=== PATIENT | female | born 1965 | race American Indian/Alaskan Native ===

== ENCOUNTER 2019-11-29 23:31 | Inpatient (IN) | payer OTHER ==
--- NOTE | 2019-11-30 | Emergency Department Report ---
ED Altered Mental Status HPI - General Chief Complaint: Psych Stated Complaint: AMS/MH Time Seen by Provider: 11/29/19 23:58 Source: patient, EMS Mode of arrival: Ambulatory Limitations: No Limitations - History of Present Illness Initial Comments: Patient is a 54-year-old female that presents emergency room with complaints of altered mental status and not acting right. Patient is mute and is unable to give any history. Report received from EMS and EMS states that the family called EMS because the patient is been acting strange and not been taking her medications or eating for a week. Patient has a past medical history of diabetes, hypertension, bipolar schizophrenia hyperlipidemia. No family at bedside. MD Complaint: altered mental status -: Sudden, week(s) - Related Data Home Medications Medication Instructions Recorded Confirmed Last Taken Unobtainable 11/29/19 11/29/19 Unknown Allergies Allergy/AdvReac Type Severity Reaction Status Date / Time No Known Allergies Allergy Unverified 11/29/19 23:51 ED Review of Systems ROS: Stated complaint: AMS/MH Other details as noted in HPI Comment: Unobtainable due to pts medical conditions ED Past Medical Hx - Past Medical History Previous Medical History?: Yes Hx Hypertension: Yes Hx Diabetes: Yes Hx Psychiatric Treatment: Yes (Bipolar schizo) Additional medical history: high cholesterol - Surgical History Past Surgical History?: No - Family History Family history: no significant - Social History Smoking Status: Unknown if ever smoked Substance Use Type: None - Medications Home Medications: Home Medications Medication Instructions Recorded Confirmed Last Taken Type Unobtainable 11/29/19 11/29/19 Unknown History ED Physical Exam - General Limitations: No Limitations General appearance: alert, in no apparent distress - Head Head exam: Present: atraumatic, normocephalic - Eye Eye exam: Present: normal appearance, PERRL Pupils: Present: normal accommodation - ENT ENT exam: Present: mucous membranes moist - Neck Neck exam: Present: normal inspection - Respiratory Respiratory exam: Present: normal lung sounds bilaterally. Absent: respiratory distress, wheezes, rales - Cardiovascular Cardiovascular Exam: Present: regular rate, normal rhythm. Absent: systolic murmur, diastolic murmur, rubs, gallop - GI/Abdominal GI/Abdominal exam: Present: soft, normal bowel sounds. Absent: distended, tenderness, guarding - Extremities Exam Extremities exam: Present: normal inspection - Back Exam Back exam: Present: normal inspection - Neurological Exam Neurological exam: Present: alert, altered - Skin Skin exam: Present: warm, dry, intact, normal color. Absent: rash - Assessment Assessment Interval: Baseline - Level of Consciousness 1a. Level of Consciousness: alert/keenly responsive - LOC Questions 1b. LOC Questions: answers no questions correctly - LOC Command 1c. LOC Commands: performs tasks correctly - Best Gaze 2. Best Gaze: normal - Visual 3. Visual: no visual loss - Facial Palsy 4. Facial Palsy: normal symmetrical movement - Motor Arm 5a. Motor Arm Left: no drift 5b. Motor Arm Right: no drift - Motor Leg 6a. Motor Leg Left: no drift 6b. Motor Leg Right: no drift - Limb Ataxia 7. Limb Ataxia: absent - Sensory 8. Sensory: normal - Best Language 9. Best Language: no aphasia - Dysarthria 10. Dysarthria: normal - Extinction and Inattention 11. Extinction/Inattention: no abnormality - Scoring Total Score: 2 Stroke Severity: Minor Stroke ED Course Vital Signs 11/29/19 11/29/19 23:47 23:49 Temperature 98.7 F Pulse Rate 109 H Respiratory 20 20 Rate Blood Pressure 134/88 [Left] O2 Sat by Pulse 100 96 Oximetry - Reevaluation(s) Reevaluation #1: Patient is starting to answer some questions. 11/30/19 04:20 Reevaluation #2: I discussed all results with patient. I discussed plan of care with patient. Patient agrees with plan of care and admission. Patient to be admitted to the hospitalist service. 11/30/19 04:41 - Consultations Consultation #1: Hospitalist consulted for admission. Hospitalist to admit patient. 11/30/19 04:41 - Lab Data Result diagrams: 11/30/19 00:02 11/30/19 00:02 Lab Results 11/30/19 11/30/19 11/30/19 Range/Units 00:02 00:02 00:02 WBC (4.5-11.0) K/mm3 RBC (3.65-5.03) M/mm3 Hgb (10.1-14.3) gm/dl Hct (30.3-42.9) % MCV (79-97) fl MCH (28-32) pg MCHC (30-34) % RDW (13.2-15.2) % Plt Count (140-440) K/mm3 Lymph % (Auto) (13.4-35.0) % [place] % (Auto) (0.0-7.3) % Eos % (Auto) (0.0-4.3) % Baso % (Auto) (0.0-1.8) % Lymph # (1.2-5.4) K/mm3 [place] # (0.0-0.8) K/mm3 Eos # (0.0-0.4) K/mm3 Baso # (0.0-0.1) K/mm3 Seg Neutrophils % (40.0-70.0) % Seg Neutrophils # (1.8-7.7) K/mm3 Sodium 149 H (137-145) mmol/L Potassium 3.5 L (3.6-5.0) mmol/L Chloride 106.7 (98-107) mmol/L Carbon Dioxide 26 (22-30) mmol/L Anion Gap 20 mmol/L BUN 31 H (7-17) mg/dL Creatinine 1.2 (0.7-1.2) mg/dL Estimated GFR 47 ml/min BUN/Creatinine Ratio 26 % Glucose 124 H (65-100) mg/dL Calcium 10.8 H (8.4-10.2) mg/dL Urine Color (Yellow) Urine Turbidity (Clear) Urine pH (5.0-7.0) Ur Specific Rudyard (1.003-1.030) Urine Protein (Negative) mg/dL Urine Glucose (UA) (Negative) mg/dL Urine Ketones (Negative) mg/dL Urine Blood (Negative) Urine Nitrite (Negative) Urine Bilirubin (Negative) Urine Urobilinogen (<2.0) mg/dL Ur Leukocyte Esterase (Negative) Urine WBC (Auto) (0.0-6.0) /HPF Urine RBC (Auto) (0.0-6.0) /HPF U Epithel Cells (Auto) (0-13.0) /HPF Urine Bacteria (Auto) (Negative) /HPF Urine Mucus /HPF Salicylates < 0.3 L (2.8-20.0) mg/dL Urine Opiates Screen Urine Methadone Screen Acetaminophen < 5.0 L (10.0-30.0) ug/mL Ur Barbiturates Screen Ur Phencyclidine Scrn Ur Amphetamines Screen U Benzodiazepines Scrn Urine Cocaine Screen U Marijuana (THC) Screen Drugs of Abuse Note Plasma/Serum Alcohol (0-0.07) % 11/30/19 11/30/19 11/30/19 Range/Units 00:02 00:09 03:38 WBC 13.2 H (4.5-11.0) K/mm3 RBC 5.17 H (3.65-5.03) M/mm3 Hgb 13.7 (10.1-14.3) gm/dl Hct 42.3 (30.3-42.9) % MCV 82 (79-97) fl MCH 26 L (28-32) pg MCHC 32 (30-34) % RDW 15.6 H (13.2-15.2) % Plt Count 296 (140-440) K/mm3 Lymph % (Auto) 14.2 (13.4-35.0) % [place] % (Auto) 5.2 (0.0-7.3) % Eos % (Auto) 0.0 (0.0-4.3) % Baso % (Auto) 0.5 (0.0-1.8) % Lymph # 1.9 (1.2-5.4) K/mm3 [place] # 0.7 (0.0-0.8) K/mm3 Eos # 0.0 (0.0-0.4) K/mm3 Baso # 0.1 (0.0-0.1) K/mm3 Seg Neutrophils % 80.1 H (40.0-70.0) % Seg Neutrophils # 10.6 H (1.8-7.7) K/mm3 Sodium (137-145) mmol/L Potassium (3.6-5.0) mmol/L Chloride (98-107) mmol/L Carbon Dioxide (22-30) mmol/L Anion Gap mmol/L BUN (7-17) mg/dL Creatinine (0.7-1.2) mg/dL Estimated GFR ml/min BUN/Creatinine Ratio % Glucose (65-100) mg/dL Calcium (8.4-10.2) mg/dL Urine Color Yellow (Yellow) Urine Turbidity Slightly-cloudy (Clear) Urine pH 5.0 (5.0-7.0) Ur Specific [place]yard 1.029 (1.003-1.030) Urine Protein 100 mg/dl (Negative) mg/dL Urine Glucose (UA) Neg (Negative) mg/dL Urine Ketones Tr (Negative) mg/dL Urine Blood Mod (Negative) Urine Nitrite Neg (Negative) Urine Bilirubin Neg (Negative) Urine Urobilinogen < 2.0 (<2.0) mg/dL Ur Leukocyte Esterase Sm (Negative) Urine WBC (Auto) 8.0 H (0.0-6.0) /HPF Urine RBC (Auto) 8.0 (0.0-6.0) /HPF U Epithel Cells (Auto) 5.0 (0-13.0) /HPF Urine Bacteria (Auto) 1+ (Negative) /HPF Urine Mucus 3+ /HPF Salicylates (2.8-20.0) mg/dL Urine Opiates Screen Urine Methadone Screen Acetaminophen (10.0-30.0) ug/mL Ur Barbiturates Screen Ur Phencyclidine Scrn Ur Amphetamines Screen U Benzodiazepines Scrn Urine Cocaine Screen U Marijuana (THC) Screen Drugs of Abuse Note Plasma/Serum Alcohol < 0.01 (0-0.07) % 11/30/19 Range/Units 03:38 WBC (4.5-11.0) K/mm3 RBC (3.65-5.03) M/mm3 Hgb (10.1-14.3) gm/dl Hct (30.3-42.9) % MCV (79-97) fl MCH (28-32) pg MCHC (30-34) % RDW (13.2-15.2) % Plt Count (140-440) K/mm3 Lymph % (Auto) (13.4-35.0) % [place] % (Auto) (0.0-7.3) % Eos % (Auto) (0.0-4.3) % Baso % (Auto) (0.0-1.8) % Lymph # (1.2-5.4) K/mm3 [place] # (0.0-0.8) K/mm3 Eos # (0.0-0.4) K/mm3 Baso # (0.0-0.1) K/mm3 Seg Neutrophils % (40.0-70.0) % Seg Neutrophils # (1.8-7.7) K/mm3 Sodium (137-145) mmol/L Potassium (3.6-5.0) mmol/L Chloride (98-107) mmol/L Carbon Dioxide (22-30) mmol/L Anion Gap mmol/L BUN (7-17) mg/dL Creatinine (0.7-1.2) mg/dL Estimated GFR ml/min BUN/Creatinine Ratio % Glucose (65-100) mg/dL Calcium (8.4-10.2) mg/dL Urine Color (Yellow) Urine Turbidity (Clear) Urine pH (5.0-7.0) Ur Specific [place] (1.003-1.030) Urine Protein (Negative) mg/dL Urine Glucose (UA) (Negative) mg/dL Urine Ketones (Negative) mg/dL Urine Blood (Negative) Urine Nitrite (Negative) Urine Bilirubin (Negative) Urine Urobilinogen (<2.0) mg/dL Ur Leukocyte Esterase (Negative) Urine WBC (Auto) (0.0-6.0) /HPF Urine RBC (Auto) (0.0-6.0) /HPF U Epithel Cells (Auto) (0-13.0) /HPF Urine Bacteria (Auto) (Negative) /HPF Urine Mucus /HPF Salicylates (2.8-20.0) mg/dL Urine Opiates Screen Presumptive negative Urine Methadone Screen Presumptive negative Acetaminophen (10.0-30.0) ug/mL Ur Barbiturates Screen Presumptive negative Ur Phencyclidine Scrn Presumptive negative Ur Amphetamines Screen Presumptive negative U Benzodiazepines Scrn Presumptive negative Urine Cocaine Screen Presumptive negative U Marijuana (THC) Screen Presumptive negative Drugs of Abuse Note Disclamer Plasma/Serum Alcohol (0-0.07) % - Radiology Data Radiology results: report reviewed CT head/brain wo con INDICATION / CLINICAL INFORMATION: Altered Mental Status Pt has cried since she came to the E.R. Unresponsive to questions.. TECHNIQUE: Axial CT imaging of the brain was obtained without contrast. Coronal and sagittal reformatted imaging obtained and reviewed. All CT scans at this location are performed using CT dose reduction for ALARA by means of automated exposure control. COMPARISON: Prior head CT is not available at this time for comparison. FINDINGS: No intracranial hemorrhage, mass, or midline shift. No extra-axial fluid collection or suggestion of acute territorial infarction. Ventricular system and basilar cisterns are unremarkable. Mild cerebral atrophy. Visualized paranasal sinuses and mastoid air cells are well aerated and clear. No calvarial abnormality. IMPRESSION: 1. No acute intracranial abnormality. - Medical Decision Making Patient is a 54-year-old female that presents emergency room with complaints of strange behavior, nonverbal, not eating, not taking medications. Patient was sent here by her family via EMS. Patient had a CT of the head done which was negative for acute findings. Patient's labs were done and are consistent with dehydration, UTI, elevated WBC, hypernatremia. Patient's findings are consistent with dehydration and altered mental status and UTI. Patient given antibiotics and fluids in the ER. Patient admitted to the hospitalist service. - Differential Diagnosis AMS, UTI, dehydration, nonverbal, missed medications Critical Care Time: Yes (AMS, UTI, dehydration, nonverbal, missed medications.) Critical care time in (mins) excluding proc time.: 45 Critical care attestation.: If time is entered above; I have spent that time in minutes in the direct care of this critically ill patient, excluding procedure time. Critical Care Time: 45 minutes ED Disposition Clinical Impression: Dehydration, Nonverbal, Hypernatremia, Tachycardia Altered mental state Qualifiers: Altered mental status type: unspecified Qualified Code(s): R41.82 - Altered mental status, unspecified UTI (urinary tract infection) Qualifiers: Urinary tract infection type: acute cystitis Hematuria presence: with hematuria Qualified Code(s): N30.01 - Acute cystitis with hematuria Elevated WBC count Qualifiers: Leukocytosis type: unspecified Qualified Code(s): D72.829 - Elevated white blood cell count, unspecified Disposition: DC-09 OP ADMIT IP TO THIS HOSP Is pt being admited?: Yes Does the pt Need Aspirin: No Condition: Critical Time of Disposition: 04:45
[2019-11-30 00:55] LABS: Basophils # (Auto) 0.1 K/mm3 (0.0-0.1); Basophils % (Auto) 0.5 % (0.0-1.8); Hematocrit 42.3 % (30.3-42.9); Hemoglobin 13.7 gm/dl (10.1-14.3); Lymphocytes # (Auto) 1.9 K/mm3 (1.2-5.4); Lymphocytes % (Auto) 14.2 % (13.4-35.0); Mean Corpuscular HGB Conc 32 % (30-34); Mean Corpuscular Volume 82 fl (79-97); Monocytes # (Auto) 0.7 K/mm3 (0.0-0.8); Monocytes % (Auto) 5.2 % (0.0-7.3); Platelet Count 296 K/mm3 (140-440); Red Blood Count 5.17 M/mm3 (3.65-5.03); Red Cell Distribution Width 15.6 % (13.2-15.2)
[2019-11-30 01:11] LABS: Calcium 10.8 mg/dL (8.4-10.2)
[2019-11-30] MEDS ORDERED: SODIUM CHLORIDE 0.9% 1000 ML 1,000 ML IV ONE (02:35)
[2019-11-30] MEDS ORDERED: ZIPRASIDONE MESYLATE 20 MG VIAL IM ONE (02:35)
[2019-11-30] MEDS ORDERED: WATER FOR INJ Sterile (PF) 10 ML ONE (03:02)
--- NOTE | 2019-11-30 03:46 | Cat Scan Report ---
CT head/brain wo con INDICATION / CLINICAL INFORMATION: Altered Mental Status Pt has cried since she came to the E.R. Unresponsive to questions.. TECHNIQUE: Axial CT imaging of the brain was obtained without contrast. Coronal and sagittal reformatted imaging obtained and reviewed. All CT scans at this location are performed using CT dose reduction for ALAR A by means of automated exposure control. COMPARISON: Prior head CT is not available at this time for comparison. FINDINGS: No intracranial hemorrhage, mass, or midline shift. No extra-axial fluid collection or suggestion of acute territorial infarction. Ventricular system and basilar cisterns are unremarkable. Mild cerebral atrophy. Visualized paranasal sinuses and mastoid air cells are well aerated and clear. No calvarial abnormali ty. IMPRESSION: 1. No acute intracranial abnormality. Signer Name: Viky Devi MD Signed: 11/30/2019 3:41 AM Workstation Name: [id number]
[2019-11-30 04:08] LABS: Amphetamine Screen,Urine PRESUMPTIVE NEGATIVE; Bacteria,Urine 1+ /HPF (Negative); Benzodiazepines Screen,Urine PRESUMPTIVE NEGATIVE; Bilirubin,Urine NEG (Negative); Blood,Urine MOD (Negative); Cannabinoid Screen,Urine PRESUMPTIVE NEGATIVE; Cocaine Screen,Urine PRESUMPTIVE NEGATIVE; Color,Urine Yellow (Yellow); Methadone Screen,Urine PRESUMPTIVE NEGATIVE; Mucus,Urine 3+ /HPF; Opiate Screen,Urine PRESUMPTIVE NEGATIVE; Urobilinogen,Urine < 2.0 mg/dL (<2.0)
[2019-11-30] MEDS ORDERED: CEFEPIME/NS 2 GM/100 ML 2 GM/100 ML BAG IV ONE (04:46)
[2019-11-30] MEDS ORDERED: ACETAMINOPHEN 325 MG TAB PO PRN (05:14)
[2019-11-30] MEDS ORDERED: ONDANSETRON 4 MG/2 ML INJ IV PRN (05:14)
--- NOTE | 2019-11-30 06:17 | History and Physical Report ---
History of Present Illness History of present illness: 54-year-old woman with a history of hypertension, diabetes, bipolar, schizophrenia, hyperlipidemia was sent to the emergency room by family because she is not been eating or taking her medications over 1 week. Patient is unable to give a history, she has crying spells, states she her job sent her here to the emergency room for evaluation. Patient will be admitted for acute renal insufficiency, dehydration, bizarre behavior secondary to offer antipsychotics review of system is unobtainable PAST MEDICAL HISTORY: hypertension, diabetes, bipolar, schizophrenia, hyperlipidemia PAST SURGICAL HISTORY: Unknown SOCIAL HISTORY: Denies alcohol, tobacco, drugs FAMILY HISTORY: Unknown Medications and Allergies Allergies Allergy/AdvReac Type Severity Reaction Status Date / Time No Known Allergies Allergy Unverified 11/29/19 23:51 Home Medications Medication Instructions Recorded Confirmed Last Taken Type Unobtainable 11/29/19 11/29/19 Unknown History Active Meds: Active Medications Acetaminophen (Tylenol) 650 mg PO Q4H PRN PRN Reason: Pain MILD(1-3)/Fever >100.5/ESCOBAR Enoxaparin Sodium (Enoxaparin) 40 mg SUB-Q QDAY JEF Dextrose/Sodium Chloride (D5/0.45ns) 1,000 mls @ 125 mls/hr IV DIRECT JEF Ondansetron HCl (Zofran) 4 mg IV Q8H PRN PRN Reason: Nausea And Vomiting Sodium Chloride (Sodium Chloride Flush Syringe 10 Ml) 10 ml IV BID JEF Sodium Chloride (Sodium Chloride Flush Syringe 10 Ml) 10 ml IV PRN PRN PRN Reason: LINE FLUSH Exam - Physical Exam Narrative exam: Gen. appearance: Patient lying in bed, no apparent distress HEENT: Normocephalic, atraumatic, pupils equally round and reactive to light, extraocular movement intact, and no sclericterus,. No JVD or thyromegaly or nodule,neck supple, no carotid bruit ,mucous membranes moist, no exudate or erythema Heart: S1, S2, regular rate and rhythm Lungs: Clear bilaterally, breathing comfortable Abdomen: Positive bowel sounds, nontender, nondistended, no organomegaly Extremity: no edema, cyanosis, clubbing Skin: No rash, nodules, warm, dry Neuro: Cranial nerves II to XII intact speech is fluent, moves extremities, sen maria eugenia intact - Constitutional Vitals: Temp Pulse Resp BP Pulse Ox 98.7 F 109 H 20 134/88 96 11/29/19 23:49 11/29/19 23:49 11/29/19 23:49 11/29/19 23:49 11/29/19 23:49 Results - Labs CBC & Chem 7: 11/30/19 00:02 11/30/19 00:02 Labs: Abnormal lab results 11/30/19 11/30/19 11/30/19 Range/Units 00:02 00:02 00:02 WBC (4.5-11.0) K/mm3 RBC (3.65-5.03) M/mm3 MCH (28-32) pg RDW (13.2-15.2) % Seg Neutrophils % (40.0-70.0) % Seg Neutrophils # (1.8-7.7) K/mm3 Sodium 149 H (137-145) mmol/L Potassium 3.5 L (3.6-5.0) mmol/L BUN 31 H (7-17) mg/dL Glucose 124 H (65-100) mg/dL Calcium 10.8 H (8.4-10.2) mg/dL Urine WBC (Auto) (0.0-6.0) /HPF Salicylates < 0.3 L (2.8-20.0) mg/dL Acetaminophen < 5.0 L (10.0-30.0) ug/mL 11/30/19 11/30/19 Range/Units 00:02 03:38 WBC 13.2 H (4.5-11.0) K/mm3 RBC 5.17 H (3.65-5.03) M/mm3 MCH 26 L (28-32) pg RDW 15.6 H (13.2-15.2) % Seg Neutrophils % 80.1 H (40.0-70.0) % Seg Neutrophils # 10.6 H (1.8-7.7) K/mm3 Sodium (137-145) mmol/L Potassium (3.6-5.0) mmol/L BUN (7-17) mg/dL Glucose (65-100) mg/dL Calcium (8.4-10.2) mg/dL Urine WBC (Auto) 8.0 H (0.0-6.0) /HPF Salicylates (2.8-20.0) mg/dL Acetaminophen (10.0-30.0) ug/mL - Imaging and Cardiology CT Scan - head: report reviewed Assessment and Plan Assessment Acute renal insufficiency/dehydration Start IV fluid, monitor sodium level Bizarre behavior secondary to being off antipsychotics Consult psych Urinary tract infection, start IV Rocephin Diabetes Check fingersticks start insulin sliding scale Hypertension Start antihypertensive Bipolar/schizophrenia We will restart outpatient medications DVT prophylaxis
[2019-11-30] MEDS ORDERED: ALPRAZolam 0.25 MG TAB PO PRN (13:07)
--- NOTE | 2019-11-30 13:13 | Event Note ---
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
[2019-11-30] MEDS: HALOPERIDOL LACTATE 5 MG/1 ML INJ IM PRN ×2 (13:58→20:19)
[2019-11-30] MEDS: ENOXAPARIN 40 MG/0.4 ML INJ SUB-Q SCH (14:03)
[2019-11-30] MEDS: hydrALAZINE 25 MG TAB PO SCH ×2 (14:07→23:41)
[2019-11-30] MEDS: cefTRIAXone/NS 1 GM/50 ML 1 GM/50 ML BAG IV SCH (20:17)
[2019-12-01] MEDS: HALOPERIDOL LACTATE 5 MG/1 ML INJ IM PRN ×2 (02:09→21:20)
[2019-12-01] MEDS: hydrALAZINE 25 MG TAB PO SCH ×3 (06:06→21:22)
[2019-12-01 07:49] LABS: Basophils # (Auto) 0.1 K/mm3 (0.0-0.1); Basophils % (Auto) 0.6 % (0.0-1.8); Eosinophils # (Auto) 0.1 K/mm3 (0.0-0.4); Eosinophils % (Auto) 0.6 % (0.0-4.3); Hematocrit 39.6 % (30.3-42.9); Hemoglobin 12.6 gm/dl (10.1-14.3); Lymphocytes # (Auto) 1.8 K/mm3 (1.2-5.4); Mean Corpuscular HGB Conc 32 % (30-34); Mean Corpuscular Volume 82 fl (79-97); Monocytes # (Auto) 0.5 K/mm3 (0.0-0.8); Monocytes % (Auto) 4.8 % (0.0-7.3); Platelet Count 214 K/mm3 (140-440); Red Blood Count 4.83 M/mm3 (3.65-5.03); Red Cell Distribution Width 15.9 % (13.2-15.2)
[2019-12-01 08:07] LABS: BUN/Creatinine Ratio 26; Blood Urea Nitrogen 26 mg/dL (7-17); Calcium 10.1 mg/dL (8.4-10.2); Hemolysis Index 0
[2019-12-01] MEDS: ENOXAPARIN 40 MG/0.4 ML INJ SUB-Q SCH (11:00)
[2019-12-01] MEDS: cefTRIAXone/NS 1 GM/50 ML 1 GM/50 ML BAG IV SCH (11:00)
--- NOTE | 2019-12-01 11:41 | Consultation ---
History of Present Illness - Reason for Consult Consult date: 12/01/19 Reason for consult: Psychiatric assessment - History of Present Psychiatric Illness Ms. Davison is a 54-year-old -[place] female, the patient is noted sitting on the side of the bed with eyes close. The patient appears to be in a trans- unable to converse with this patient. Patient would not respond to any question asked. We will try to get in contact with the patient family to see what p sychiatric medication the patient has been taking. Spoke with the patient's [id number] this morning who reported that the patient has been taking her medication for a while she has been staying up without sleeping she has been hallucinating seeing people were telling her not to take her medications. The [id number]-[id number] reports that the patient had lost her a year ago and has been looking for his pictures and crying all day. The [id number] reported that the patient has been taking Risperdal 1 mg twice daily sertraline 25 mg daily and clonazepam 0.5 mg daily which the bottle that she has is still full. PAST PSYCHIATRIC HISTORY: Unable to assess patient remains mute PAST MEDICAL HISTORY: Family Psychiatric History None reported or documented SOCIAL HISTORY Unable to assess patient remains mute REVIEW OF SYSTEMS ROS cannot be reliably obtained from the patient due to her confusion and somnolence. MENTAL STATUS Unable to assess RECOMMENDATIONS MEDICATIONS: Start Risperdal 1 mg p.o. twice daily Start sertraline 25 mg po daily Start clonazepam 0.5 mg po daily Start trazodone 50 mg po nightly Risks, benefits and alternatives of medications discussed with the patient, questions answered and consent obtained from patient. PSYCHOTHERAPY: Supportive psychotherapy provided MEDICAL: Per primary team DELIRIUM PRECAUTIONS: Please re-orient patient frequently, keep lights on during the day, and minimize benzodiazepines and opiates as these medications could worsen patient's confusion. MARKET ANALYSIS DIRECTOR: DISPOSITION: There is no indication for inpatient hospitalization at this time, will continue to follow the patient until she is able to converse with this senior copywriter and if at that time there is an indication patient would be considered for inpatient on the fifth floor or transfer to an outside appropriate facility. LEGAL STATUS: FOLLOW-UP: Will follow Medications and Allergies Allergies Allergy/AdvReac Type Severity Reaction Status Date / Time No Known Allergies Allergy Unverified 11/29/19 23:51 Home Medications Medication Instructions Recorded Confirmed Last Taken Type Unobtainable 11/29/19 11/29/19 Unknown History Active Meds: Active Medications Acetaminophen (Tylenol) 650 mg PO Q4H PRN PRN Reason: Pain MILD(1-3)/Fever >100.5/ESCOBAR Alprazolam (Xanax) 0.25 mg PO Q8H PRN PRN Reason: Anxiety Enoxaparin Sodium (Enoxaparin) 40 mg SUB-Q QDAY [facility] Last Admin: 11/30/19 14:03 Dose: Not Given Documented by: Haloperidol Lactate (Haldol) 2 mg IM Q6H PRN PRN Reason: Agitation Last Admin: 12/01/19 02:09 Dose: 2 mg Documented by: Hydralazine HCl (Apresoline) 25 mg PO Q8HR [facility] Last Admin: 12/01/19 06:06 Dose: Not Given Documented by: Dextrose/Sodium Chloride (D5/0.45ns) 1,000 mls @ 125 mls/hr IV DIRECT JEF Ceftriaxone Sodium (Rocephin/Ns 1 Gm/50 Ml) 1 gm in 50 mls @ 100 mls/hr IV Q24HR [facility]; Protocol Last Admin: 11/30/19 20:17 Dose: Not Given Documented by: Lorazepam (Ativan) 1 mg IV Q6H PRN PRN Reason: Agitation Ondansetron HCl (Zofran) 4 mg IV Q8H PRN PRN Reason: Nausea And Vomiting Sodium Chloride (Sodium Chloride Flush Syringe 10 Ml) 10 ml IV BID [facility] Last Admin: 11/30/19 23:42 Dose: Not Given Documented by: Sodium Chloride (Sodium Chloride Flush Syringe 10 Ml) 10 ml IV PRN PRN PRN Reason: LINE FLUSH Mental Status Exam - Vital signs Last Vital Signs Temp 98.6 F 12/01/19 06:36 Pulse 102 H 12/01/19 06:36 Resp 18 12/01/19 06:36 BP 144/87 12/01/19 06:36 Pulse Ox 97 12/01/19 06:36 Results Result Diagrams: 12/01/19 07:15 12/01/19 07:15 Abnormal lab results 12/01/19 12/01/19 Range/Units 07:15 07:15 WBC 11.2 H (4.5-11.0) K/mm3 MCH 26 L (28-32) pg RDW 15.9 H (13.2-15.2) % Seg Neutrophils % 78.0 H (40.0-70.0) % Seg Neutrophils # 8.8 H (1.8-7.7) K/mm3 Sodium 152 H (137-145) mmol/L Potassium 3.3 L (3.6-5.0) mmol/L Chloride 113.4 H (98-107) mmol/L BUN 26 H (7-17) mg/dL Glucose 114 H (65-100) mg/dL All other labs normal.
--- NOTE | 2019-12-01 16:44 | Progress Note ---
Assessment and Plan Assessment and plan: --Bizarre behavior secondary to being off antipsychotics Consult psych --Acute renal insufficiency/dehydration Start IV fluid, monitor sodium level --Urinary tract infection, start IV Rocephin --Diabetes Check fingersticks start insulin sliding scale --Hypertension Start antihypertensive --Bipolar/schizophrenia We will restart outpatient medications --DVT prophylaxis Monitor closely and adjust management as needed Plan of care reviewed with the patient's nurse History Interval history: I have seen and examined the patient at the bedside this morning medical research associate is in the room Patient noncommunicative Refusing to eat, noncommunicative Psych evaluated the patient Vital signs noted Hospitalist Physical - Constitutional Vitals: Temp Pulse Resp BP Pulse Ox 98.6 F 102 H 18 144/87 97 12/01/19 06:36 12/01/19 06:36 12/01/19 06:36 12/01/19 06:36 12/01/19 06:36 General appearance: Present: mild distress, other (Noncommunicative,) - EENT Eyes: Present: PERRL, EOM intact - Neck Neck: Present: supple, normal ROM - Respiratory Respiratory effort: normal Respiratory: bilateral: diminished, negative: rales, rhonchi, wheezing - Cardiovascular Rhythm: regular Heart Sounds: Present: S1 & S2 - Extremities Extremities: no ischemia, No edema - Abdominal General gastrointestinal: soft, non-tender, non-distended, normal bowel sounds - Integumentary Integumentary: Present: clear, warm - Psychiatric Psychiatric: appropriate mood/affect, cooperative - Neurologic Neurologic: moves all extremities Results - Labs CBC & Chem 7: 12/01/19 07:15 12/01/19 07:15 Labs: Laboratory Last Values WBC 11.2 K/mm3 (4.5-11.0) H 12/01/19 07:15 RBC 4.83 M/mm3 (3.65-5.03) 12/01/19 07:15 Hgb 12.6 gm/dl (10.1-14.3) 12/01/19 07:15 Hct 39.6 % (30.3-42.9) 12/01/19 07:15 MCV 82 fl (79-97) 12/01/19 07:15 MCH 26 pg (28-32) L 12/01/19 07:15 MCHC 32 % (30-34) 12/01/19 07:15 RDW 15.9 % (13.2-15.2) H 12/01/19 07:15 Plt Count 214 K/mm3 (140-440) 12/01/19 07:15 Lymph % (Auto) 16.0 % (13.4-35.0) 12/01/19 07:15 [place] % (Auto) 4.8 % (0.0-7.3) 12/01/19 07:15 Eos % (Auto) 0.6 % (0.0-4.3) 12/01/19 07:15 Baso % (Auto) 0.6 % (0.0-1.8) 12/01/19 07:15 Lymph # 1.8 K/mm3 (1.2-5.4) 12/01/19 07:15 [place] # 0.5 K/mm3 (0.0-0.8) 12/01/19 07:15 Eos # 0.1 K/mm3 (0.0-0.4) 12/01/19 07:15 Baso # 0.1 K/mm3 (0.0-0.1) 12/01/19 07:15 Seg Neutrophils % 78.0 % (40.0-70.0) H 12/01/19 07:15 Seg Neutrophils # 8.8 K/mm3 (1.8-7.7) H 12/01/19 07:15 Sodium 152 mmol/L (137-145) H 12/01/19 07:15 Potassium 3.3 mmol/L (3.6-5.0) L 12/01/19 07:15 Chloride 113.4 mmol/L (98-107) H 12/01/19 07:15 Carbon Dioxide 22 mmol/L (22-30) 12/01/19 07:15 Anion Gap 20 mmol/L 12/01/19 07:15 BUN 26 mg/dL (7-17) H 12/01/19 07:15 Creatinine 1.0 mg/dL (0.7-1.2) 12/01/19 07:15 Estimated GFR > 60 ml/min 12/01/19 07:15 BUN/Creatinine Ratio 26 % 12/01/19 07:15 Glucose 114 mg/dL (65-100) H 12/01/19 07:15 POC Glucose 97 (70-105) 11/30/19 08:24 Calcium 10.1 mg/dL (8.4-10.2) 12/01/19 07:15 Urine Color Yellow (Yellow) 11/30/19 03:38 Urine Turbidity Slightly-cloudy (Clear) 11/30/19 03:38 Urine pH 5.0 (5.0-7.0) 11/30/19 03:38 Ur Specific [place] 1.029 (1.003-1.030) 11/30/19 03:38 Urine Protein 100 mg/dl mg/dL (Negative) 11/30/19 03:38 Urine Glucose (UA) Neg mg/dL (Negative) 11/30/19 03:38 Urine Ketones Tr mg/dL (Negative) 11/30/19 03:38 Urine Blood Mod (Negative) 11/30/19 03:38 Urine Nitrite Neg (Negative) 11/30/19 03:38 Urine Bilirubin Neg (Negative) 11/30/19 03:38 Urine Urobilinogen < 2.0 mg/dL (<2.0) 11/30/19 03:38 Ur Leukocyte Esterase Sm (Negative) 11/30/19 03:38 Urine WBC (Auto) 8.0 /HPF (0.0-6.0) H 11/30/19 03:38 Urine RBC (Auto) 8.0 /HPF (0.0-6.0) 11/30/19 03:38 U Epithel Cells (Auto) 5.0 /HPF (0-13.0) 11/30/19 03:38 Urine Bacteria (Auto) 1+ /HPF (Negative) 11/30/19 03:38 Urine Mucus 3+ /HPF 11/30/19 03:38 Salicylates < 0.3 mg/dL (2.8-20.0) L 11/30/19 00:02 Urine Opiates Screen Presumptive negative 11/30/19 03:38 Urine Methadone Screen Presumptive negative 11/30/19 03:38 Acetaminophen < 5.0 ug/mL (10.0-30.0) L 11/30/19 00:02 Ur Barbiturates Screen Presumptive negative 11/30/19 03:38 Ur Phencyclidine Scrn Presumptive negative 11/30/19 03:38 Ur Amphetamines Screen Presumptive negative 11/30/19 03:38 U Benzodiazepines Scrn Presumptive negative 11/30/19 03:38 Urine Cocaine Screen Presumptive negative 11/30/19 03:38 U Marijuana (THC) Screen Presumptive negative 11/30/19 03:38 Drugs of Abuse Note Disclamer 11/30/19 03:38 Plasma/Serum Alcohol < 0.01 % (0-0.07) 11/30/19 00:09 Finch/IV: Voiding Method Toilet IV Catheter Type [Right Hand] Peripheral IV Active Medications - Current Medications Current Medications: Generic Name Dose Route Start Last Admin Trade Name Freq PRN Reason Stop Dose Admin Acetaminophen 650 mg 11/30/19 05:14 Tylenol PO Q4H PRN Pain MILD(1-3)/Fever >100.5/ESCOBAR Alprazolam 0.25 mg 11/30/19 13:07 Xanax PO Q8H PRN Anxiety Clonazepam 0.25 mg 12/01/19 22:00 Klonopin PO BID JEF Enoxaparin Sodium 40 mg 11/30/19 10:00 11/30/19 14:03 Enoxaparin SUB-Q Not Given QDAY [facility] Haloperidol Lactate 2 mg 11/30/19 13:13 12/01/19 02:09 Haldol IM 2 mg Q6H PRN Administration Agitation Hydralazine HCl 25 mg 11/30/19 14:00 12/01/19 06:06 Apresoline PO Not Given Q8HR [facility] Dextrose/Sodium Chloride 1,000 mls @ 125 mls/hr 11/30/19 06:00 D5/0.45ns IV DIRECT JEF Ceftriaxone Sodium 1 gm in 50 mls @ 100 mls/hr 11/30/19 10:00 11/30/19 20:17 Rocephin/Ns 1 Gm/50 Ml IV Not Given Q24HR [facility] Protocol Lorazepam 1 mg 11/30/19 17:00 Ativan IV Q6H PRN Agitation Ondansetron HCl 4 mg 11/30/19 05:14 Zofran IV Q8H PRN Nausea And Vomiting Risperidone 1 mg 12/01/19 22:00 Risperdal PO BID JEF Sertraline HCl 25 mg 12/02/19 10:00 Zoloft PO QDAY JEF Sodium Chloride 10 ml 11/30/19 10:00 11/30/19 23:42 Sodium Chloride Flush Syringe 10 Ml IV Not Given BID JEF Sodium Chloride 10 ml 11/30/19 05:14 Sodium Chloride Flush Syringe 10 Ml IV PRN PRN LINE FLUSH Trazodone HCl 50 mg 12/01/19 22:00 Desyrel PO QHS [facility] Nutrition/Malnutrition Assess - Dietary Evaluation Nutrition/Malnutrition Findings: Nutrition Notes Start: 12/01/19 13:42 Freq: Status: Active Protocol: Document 12/01/19 13:42 LM (Rec: 12/01/19 13:48 LM [email or web address]) Nutrition Notes Need for Assessment generated from: MD Order,tub rider,MST Initial or Follow up Brief Note Current Diagnosis Diabetes,Hypertension, Hyperlipidemia Other Pertinent Diagnosis Schizophrenia, bipolar Current Diet Cardiac Labs/Tests Na 152 K 3.3 BUN 26 Pertinent Medications Reviewed Height 5 ft 3 in Weight 78.4 kg [place] Body Weight (kg) 52.27 BMI 30.6 Weight Status Obese Subjective/Other Information MD consult for poor oral intakes and ONS. RN screen for MST. Unable to speak to pt. Per chart, pt was not eating or taking meds for one week. Nutrition Intervention Follow-Up By: 12/04/19 Additional Comments F/U for assessment
[2019-12-01] MEDS: LORazepam 2 MG/ML VIAL IV PRN (18:39)
[2019-12-01] MEDS: traZODone 50 MG TAB PO SCH (21:22)
[2019-12-01] MEDS: clonazePAM 0.5 MG TAB PO SCH (21:23)
[2019-12-01] MEDS: risperiDONE 1 MG TAB PO SCH (21:23)
[2019-12-01] MEDS: D5W/0.45% NACL 1,000 ML IV SCH (21:39)
[2019-12-02] MEDS: LORazepam 2 MG/ML VIAL IV PRN (02:10)
[2019-12-02] MEDS: hydrALAZINE 25 MG TAB PO SCH ×3 (05:31→22:54)
[2019-12-02] MEDS: D5W/0.45% NACL 1,000 ML IV SCH ×2 (05:58→15:25)
[2019-12-02] MEDS: cefTRIAXone/NS 1 GM/50 ML 1 GM/50 ML BAG IV SCH (09:39)
[2019-12-02] MEDS: ENOXAPARIN 40 MG/0.4 ML INJ SUB-Q SCH (09:39)
[2019-12-02] MEDS: risperiDONE 1 MG TAB PO SCH ×2 (09:49→22:55)
[2019-12-02] MEDS: clonazePAM 0.5 MG TAB PO SCH ×2 (09:49→22:53)
[2019-12-02] MEDS: SERTRALINE 25 MG TAB PO SCH (12:32)
--- NOTE | 2019-12-02 13:57 | Progress Note ---
Subjective - Reason for Consult Consult date: 12/02/19 Reason for consult: psychiatric assessment - Chief Complaint Chief complaint: Ms. Davison is a 54-year-old -[place] female, the patient is noted in bed with eyes closed,. the patient responded to her name and went back to sleep. unable to assess PAST PSYCHIATRIC HISTORY: Unable to assess patient remains mute PAST MEDICAL HISTORY: Family Psychiatric History None reported or documented SOCIAL HISTORY Unable to assess patient remains mute REVIEW OF SYSTEMS ROS cannot be reliably obtained from the patient due to her confusion and somnolence. MENTAL STATUS Unable to assess RECOMMENDATIONS MEDICATIONS: continue medication on chart Risks, benefits and alternatives of medications discussed with the patient, questions answered and consent obtained from patient. MEDICAL: Per primary team DELIRIUM PRECAUTIONS: Please re-orient patient frequently, keep lights on during the day, and minimize benzodiazepines and opiates as these medications could worsen patient's confusion. 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 LEGAL STATUS: FOLLOW-UP: Will follow Medications and Allergies Allergies Mental Status Exam - Vital signs Last Vital Signs Temp 98.1 F 12/02/19 13:01 Pulse 81 12/02/19 13:01 Resp 18 12/02/19 13:01 BP 150/84 12/02/19 13:01 Pulse Ox 96 12/02/19 13:01
[2019-12-02] MEDS ORDERED: POTASSIUM CHLORIDE 20 MEQ PACKET FEEDTUBE ONE (19:12)
--- NOTE | 2019-12-02 19:13 | Progress Note ---
Assessment and Plan Assessment and plan: --Acute metabolic encephalopathy; Patient noncommunicative, not eating or drinking No family available, safety and security officer at the bedside Psych following Dobbhoff placement, IV fluids --Hypokalemia; replace with 40 mEq KCl oral --Hypernatremia; D5W Encourage oral fluids, free water flushes after Dobbhoff placement --Bizarre behavior secondary to being off antipsychotics Consult psych --Urinary tract infection, start IV Rocephin --Diabetes Check fingersticks start insulin sliding scale --Hypertension Start antihypertensive --Bipolar/schizophrenia We will restart outpatient medications --DVT prophylaxis Monitor closely and adjust management as needed Plan of care reviewed with the patient's nurse History Interval history: Patient seen and examined medical records reviewed Patient is encephalopathic Noncommunicative, not eating not drinking Vital signs noted Psych following No family available Hospitalist Physical - Constitutional Vitals: Temp Pulse Resp BP Pulse Ox 98.3 F 86 18 136/69 97 12/02/19 16:41 12/02/19 16:41 12/02/19 16:41 12/02/19 16:41 12/02/19 16:41 General appearance: Present: mild distress, other (Noncommunicative,) - EENT Eyes: Present: PERRL, EOM intact - Neck Neck: Present: supple, normal ROM - Respiratory Respiratory effort: normal Respiratory: bilateral: diminished, negative: rales, rhonchi, wheezing - Cardiovascular Rhythm: regular Heart Sounds: Present: S1 & S2 - Extremities Extremities: no ischemia, No edema - Abdominal General gastrointestinal: soft, non-distended, normal bowel sounds - Integumentary Integumentary: Present: clear, warm - Psychiatric Psychiatric: other (Noncommunicative) - Neurologic Neurologic: moves all extremities, other (Noncommunicative) Results - Labs CBC & Chem 7: 12/01/19 07:15 12/01/19 07:15 Labs: Laboratory Last Values WBC 11.2 K/mm3 (4.5-11.0) H 12/01/19 07:15 RBC 4.83 M/mm3 (3.65-5.03) 12/01/19 07:15 Hgb 12.6 gm/dl (10.1-14.3) 12/01/19 07:15 Hct 39.6 % (30.3-42.9) 12/01/19 07:15 MCV 82 fl (79-97) 12/01/19 07:15 MCH 26 pg (28-32) L 12/01/19 07:15 MCHC 32 % (30-34) 12/01/19 07:15 RDW 15.9 % (13.2-15.2) H 12/01/19 07:15 Plt Count 214 K/mm3 (140-440) 12/01/19 07:15 Lymph % (Auto) 16.0 % (13.4-35.0) 12/01/19 07:15 [place] % (Auto) 4.8 % (0.0-7.3) 12/01/19 07:15 Eos % (Auto) 0.6 % (0.0-4.3) 12/01/19 07:15 Baso % (Auto) 0.6 % (0.0-1.8) 12/01/19 07:15 Lymph # 1.8 K/mm3 (1.2-5.4) 12/01/19 07:15 [place] # 0.5 K/mm3 (0.0-0.8) 12/01/19 07:15 Eos # 0.1 K/mm3 (0.0-0.4) 12/01/19 07:15 Baso # 0.1 K/mm3 (0.0-0.1) 12/01/19 07:15 Seg Neutrophils % 78.0 % (40.0-70.0) H 12/01/19 07:15 Seg Neutrophils # 8.8 K/mm3 (1.8-7.7) H 12/01/19 07:15 Sodium 152 mmol/L (137-145) H 12/01/19 07:15 Potassium 3.3 mmol/L (3.6-5.0) L 12/01/19 07:15 Chloride 113.4 mmol/L (98-107) H 12/01/19 07:15 Carbon Dioxide 22 mmol/L (22-30) 12/01/19 07:15 Anion Gap 20 mmol/L 12/01/19 07:15 BUN 26 mg/dL (7-17) H 12/01/19 07:15 Creatinine 1.0 mg/dL (0.7-1.2) 12/01/19 07:15 Estimated GFR > 60 ml/min 12/01/19 07:15 BUN/Creatinine Ratio 26 % 12/01/19 07:15 Glucose 114 mg/dL (65-100) H 12/01/19 07:15 POC Glucose 97 (70-105) 11/30/19 08:24 Calcium 10.1 mg/dL (8.4-10.2) 12/01/19 07:15 Urine Color Yellow (Yellow) 11/30/19 03:38 Urine Turbidity Slightly-cloudy (Clear) 11/30/19 03:38 Urine pH 5.0 (5.0-7.0) 11/30/19 03:38 Ur Specific [place] 1.029 (1.003-1.030) 11/30/19 03:38 Urine Protein 100 mg/dl mg/dL (Negative) 11/30/19 03:38 Urine Glucose (UA) Neg mg/dL (Negative) 11/30/19 03:38 Urine Ketones Tr mg/dL (Negative) 11/30/19 03:38 Urine Blood Mod (Negative) 11/30/19 03:38 Urine Nitrite Neg (Negative) 11/30/19 03:38 Urine Bilirubin Neg (Negative) 11/30/19 03:38 Urine Urobilinogen < 2.0 mg/dL (<2.0) 11/30/19 03:38 Ur Leukocyte Esterase Sm (Negative) 11/30/19 03:38 Urine WBC (Auto) 8.0 /HPF (0.0-6.0) H 11/30/19 03:38 Urine RBC (Auto) 8.0 /HPF (0.0-6.0) 11/30/19 03:38 U Epithel Cells (Auto) 5.0 /HPF (0-13.0) 11/30/19 03:38 Urine Bacteria (Auto) 1+ /HPF (Negative) 11/30/19 03:38 Urine Mucus 3+ /HPF 11/30/19 03:38 Salicylates < 0.3 mg/dL (2.8-20.0) L 11/30/19 00:02 Urine Opiates Screen Presumptive negative 11/30/19 03:38 Urine Methadone Screen Presumptive negative 11/30/19 03:38 Acetaminophen < 5.0 ug/mL (10.0-30.0) L 11/30/19 00:02 Ur Barbiturates Screen Presumptive negative 11/30/19 03:38 Ur Phencyclidine Scrn Presumptive negative 11/30/19 03:38 Ur Amphetamines Screen Presumptive negative 11/30/19 03:38 U Benzodiazepines Scrn Presumptive negative 11/30/19 03:38 Urine Cocaine Screen Presumptive negative 11/30/19 03:38 U Marijuana (THC) Screen Presumptive negative 11/30/19 03:38 Drugs of Abuse Note Disclamer 11/30/19 03:38 Plasma/Serum Alcohol < 0.01 % (0-0.07) 11/30/19 00:09 Finch/IV: Voiding Method Toilet IV Catheter Type [Right Hand] Peripheral IV Active Medications - Current Medications Current Medications: Generic Name Dose Route Start Last Admin Trade Name Freq PRN Reason Stop Dose Admin Acetaminophen 650 mg 11/30/19 05:14 Tylenol PO Q4H PRN Pain MILD(1-3)/Fever >100.5/ESCOBAR Alprazolam 0.25 mg 11/30/19 13:07 Xanax PO Q8H PRN Anxiety Clonazepam 0.25 mg 12/01/19 22:00 12/02/19 09:49 Klonopin PO Not Given BID JEF Enoxaparin Sodium 40 mg 11/30/19 10:00 12/02/19 09:39 Enoxaparin SUB-Q 40 mg QDAY JEF Administration Haloperidol Lactate 2 mg 11/30/19 13:13 12/01/19 21:20 Haldol IM 2 mg Q6H PRN Administration Agitation Hydralazine HCl 25 mg 11/30/19 14:00 12/02/19 13:26 Apresoline PO Not Given Q8HR JEF Dextrose/Sodium Chloride 1,000 mls @ 150 mls/hr 11/30/19 06:00 12/02/19 15:25 D5/0.45ns IV 125 mls/hr DIRECT JEF Administration Ceftriaxone Sodium 1 gm in 50 mls @ 100 mls/hr 11/30/19 10:00 12/02/19 09:39 Rocephin/Ns 1 Gm/50 Ml IV 100 mls/hr Q24HR JEF Administration Protocol Lorazepam 1 mg 11/30/19 17:00 12/02/19 02:10 Ativan IV 1 mg Q6H PRN Administration Agitation Ondansetron HCl 4 mg 11/30/19 05:14 Zofran IV Q8H PRN Nausea And Vomiting Risperidone 1 mg 12/01/19 22:00 12/02/19 09:49 Risperdal PO Not Given BID JEF Sertraline HCl 25 mg 12/02/19 10:00 12/02/19 12:32 Zoloft PO Not Given QDAY JEF Sodium Chloride 10 ml 11/30/19 10:00 12/02/19 09:39 Sodium Chloride Flush Syringe 10 Ml IV 10 ml BID JEF Administration Sodium Chloride 10 ml 11/30/19 05:14 Sodium Chloride Flush Syringe 10 Ml IV PRN PRN LINE FLUSH Trazodone HCl 50 mg 12/01/19 22:00 12/01/19 21:22 Desyrel PO Not Given QHS [facility] Nutrition/Malnutrition Assess - Dietary Evaluation Nutrition/Malnutrition Findings: Nutrition Notes Start: 12/01/19 13:42 Freq: Status: Active Protocol: Document 12/01/19 13:42 LM (Rec: 12/01/19 13:48 LM [email or web address]) Nutrition Notes Need for Assessment generated from: MD Order,executive asst,MST Initial or Follow up Brief Note Current Diagnosis Diabetes,Hypertension, Hyperlipidemia Other Pertinent Diagnosis Schizophrenia, bipolar Current Diet Cardiac Labs/Tests Na 152 K 3.3 BUN 26 Pertinent Medications Reviewed Height 5 ft 3 in Weight 78.4 kg [place] Body Weight (kg) 52.27 BMI 30.6 Weight Status Obese Subjective/Other Information MD consult for poor oral intakes and ONS. RN screen for MST. Unable to speak to pt. Per chart, pt was not eating or taking meds for one week. Nutrition Intervention Follow-Up By: 12/04/19 Additional Comments F/U for assessment
[2019-12-02] MEDS: traZODone 50 MG TAB PO SCH (22:53)
[2019-12-02] MEDS: DEXTROSE 5% IN WATER 1,000 ML IV SCH (22:56)
[2019-12-03] MEDS: hydrALAZINE 25 MG TAB PO SCH ×3 (05:31→22:29)
[2019-12-03] MEDS: DEXTROSE 5% IN WATER 1,000 ML IV SCH ×3 (06:35→21:56)
[2019-12-03] MEDS: risperiDONE 1 MG TAB PO SCH ×2 (09:23→21:53)
[2019-12-03] MEDS: clonazePAM 0.5 MG TAB PO SCH ×2 (09:23→21:54)
[2019-12-03] MEDS: SERTRALINE 25 MG TAB PO SCH (09:23)
[2019-12-03] MEDS: ENOXAPARIN 40 MG/0.4 ML INJ SUB-Q SCH (09:23)
[2019-12-03] MEDS: cefTRIAXone/NS 1 GM/50 ML 1 GM/50 ML BAG IV SCH (09:31)
--- NOTE | 2019-12-03 14:18 | Progress Note ---
Subjective - Reason for Consult Consult date: 12/03/19 Reason for consult: Psychiatric assessment - Chief Complaint Chief complaint: Ms. Davison is a 54-year-old -[place] female, the patient is noted in bed awake oriented x2, reoriented to place. The patient appear calm cooperative, she appears her age, she is dressed appropriately for the occasion she maintains eye contact, she is able to make her needs known. When asked why she was here the patient stated, I have no idea what happened at home. The patient reports that she does have a history of schizoaffective disorder and reported that she has not been taking her meds for unknown period of time, when asked why she states I do not even know why. The patient stated, "I know know that I need to take my medications anyway" the patient denies suicidal or homicidal ideations and contracts for safety. The patient does report hearing voices sometimes telling her crazy stuff she states, "sometimes I do not even know what they are saying". He does report visual hallucination of blurriness. The patient reports that having depressive symptoms and rates her depression as a 7 out of 10. The patient stated prior to coming to this facility she has not been sleeping for a long time. The patient reports her mood as okay. The patient is requesting to follow-up with psychiatric doctor on the outside as she has not seen one for years, she states that she gets her medication from her primary care. A clinic or outpatient treatment setting is recommended at this time. The patient is motivated for compliance and adherence to medication regimen and understanding needs to be compliance with her medications. REVIEW OF SYSTEMS Constitutional: Negative for weight loss ENT: Negative for stridor Respiratory: Negative for cough or hemoptysis All other systems reviewed and are negative MSE Appearance: Awake. Dressed appropriately Behavior: cooperative, Mood: good Affect: Euthymic Thought Process: goal directed Speech:normal Thought Content Suicidal: Denies Homicidal: Denies Delusions:DENIES Consciousness: Alert Cognition/Memory: limited Insight/Judgment: intact RECOMMENDATIONS MEDICATIONS: continue medication on chart Risks, benefits and alternatives of medications discussed with the patient, questions answered and consent obtained from patient. MEDICAL: Per primary team DELIRIUM PRECAUTIONS: Please re-orient patient frequently, keep lights on during the day, and minimize benzodiazepines and opiates as these medications could worsen patient's confusion. 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 request out-patient psychotherapy and a psychiatrist doctor to follow. will follow until d/c LEGAL STATUS: voluntary FOLLOW-UP: Will follow until d/c Medications and Allergies Allergies Mental Status Exam - Vital signs Last Vital Signs Temp 98.2 F 12/03/19 12:30 Pulse 91 H 12/03/19 12:30 Resp 18 12/03/19 12:30 BP 117/61 12/03/19 12:30 Pulse Ox 98 12/03/19 12:30
--- NOTE | 2019-12-03 19:47 | Progress Note ---
Assessment and Plan Assessment and plan: --Acute metabolic encephalopathy; Patient noncommunicative, not eating or drinking on admission However today patient is alert awake , responding appropriately Taking her medications, had her breakfast Psych following --Hypokalemia; replace with 40 mEq KCl oral --Hypernatremia; D5W Encourage oral fluids, free water flushes after Dobbhoff placement --Bizarre behavior secondary to being off antipsychotics Psych following, patient behavior significantly improved --Urinary tract infection, continue empiric antibiotic IV Rocephin Follow cultures --Diabetes Check fingersticks start insulin sliding scale --Hypertension Start antihypertensive --Bipolar/schizophrenia We will restart outpatient medications --DVT prophylaxis Monitor closely and adjust management as needed Plan of care reviewed with the patient's nurse History Interval history: Patient seen and examined this morning at 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 bedside 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 Patient is alert awake oriented, responding appropriately Not in acute distress ,taking medications, ate her breakfast Vital signs reviewed Hospitalist Physical - Constitutional Vitals: Temp Pulse Resp BP Pulse Ox 98.2 F 87 18 108/44 96 12/03/19 12:30 12/03/19 15:11 12/03/19 12:30 12/03/19 15:11 12/03/19 14:44 General appearance: Present: no acute distress, well-nourished, obese, other (Responding appropriately) - EENT Eyes: Present: PERRL, EOM intact - Neck Neck: Present: supple, normal ROM - Respiratory Respiratory effort: normal Respiratory: bilateral: diminished, negative: rales, rhonchi, wheezing - Cardiovascular Rhythm: regular Heart Sounds: Present: S1 & S2 - Extremities Extremities: no ischemia, No edema - Abdominal General gastrointestinal: soft, non-tender, non-distended, normal bowel sounds - Integumentary Integumentary: Present: clear, warm - Psychiatric Psychiatric: appropriate mood/affect, cooperative - Neurologic Neurologic: CNII-XII intact, moves all extremities Results - Labs CBC & Chem 7: 12/01/19 07:15 12/01/19 07:15 Labs: Laboratory Last Values WBC 11.2 K/mm3 (4.5-11.0) H 12/01/19 07:15 RBC 4.83 M/mm3 (3.65-5.03) 12/01/19 07:15 Hgb 12.6 gm/dl (10.1-14.3) 12/01/19 07:15 Hct 39.6 % (30.3-42.9) 12/01/19 07:15 MCV 82 fl (79-97) 12/01/19 07:15 MCH 26 pg (28-32) L 12/01/19 07:15 MCHC 32 % (30-34) 12/01/19 07:15 RDW 15.9 % (13.2-15.2) H 12/01/19 07:15 Plt Count 214 K/mm3 (140-440) 12/01/19 07:15 Lymph % (Auto) 16.0 % (13.4-35.0) 12/01/19 07:15 [place] % (Auto) 4.8 % (0.0-7.3) 12/01/19 07:15 Eos % (Auto) 0.6 % (0.0-4.3) 12/01/19 07:15 Baso % (Auto) 0.6 % (0.0-1.8) 12/01/19 07:15 Lymph # 1.8 K/mm3 (1.2-5.4) 12/01/19 07:15 [place] # 0.5 K/mm3 (0.0-0.8) 12/01/19 07:15 Eos # 0.1 K/mm3 (0.0-0.4) 12/01/19 07:15 Baso # 0.1 K/mm3 (0.0-0.1) 12/01/19 07:15 Seg Neutrophils % 78.0 % (40.0-70.0) H 12/01/19 07:15 Seg Neutrophils # 8.8 K/mm3 (1.8-7.7) H 12/01/19 07:15 Sodium 152 mmol/L (137-145) H 12/01/19 07:15 Potassium 3.3 mmol/L (3.6-5.0) L 12/01/19 07:15 Chloride 113.4 mmol/L (98-107) H 12/01/19 07:15 Carbon Dioxide 22 mmol/L (22-30) 12/01/19 07:15 Anion Gap 20 mmol/L 12/01/19 07:15 BUN 26 mg/dL (7-17) H 12/01/19 07:15 Creatinine 1.0 mg/dL (0.7-1.2) 12/01/19 07:15 Estimated GFR > 60 ml/min 12/01/19 07:15 BUN/Creatinine Ratio 26 % 12/01/19 07:15 Glucose 114 mg/dL (65-100) H 12/01/19 07:15 POC Glucose 97 (70-105) 11/30/19 08:24 Calcium 10.1 mg/dL (8.4-10.2) 12/01/19 07:15 Urine Color Yellow (Yellow) 11/30/19 03:38 Urine Turbidity Slightly-cloudy (Clear) 11/30/19 03:38 Urine pH 5.0 (5.0-7.0) 11/30/19 03:38 Ur Specific [place] 1.029 (1.003-1.030) 11/30/19 03:38 Urine Protein 100 mg/dl mg/dL (Negative) 11/30/19 03:38 Urine Glucose (UA) Neg mg/dL (Negative) 11/30/19 03:38 Urine Ketones Tr mg/dL (Negative) 11/30/19 03:38 Urine Blood Mod (Negative) 11/30/19 03:38 Urine Nitrite Neg (Negative) 11/30/19 03:38 Urine Bilirubin Neg (Negative) 11/30/19 03:38 Urine Urobilinogen < 2.0 mg/dL (<2.0) 11/30/19 03:38 Ur Leukocyte Esterase Sm (Negative) 11/30/19 03:38 Urine WBC (Auto) 8.0 /HPF (0.0-6.0) H 11/30/19 03:38 Urine RBC (Auto) 8.0 /HPF (0.0-6.0) 11/30/19 03:38 U Epithel Cells (Auto) 5.0 /HPF (0-13.0) 11/30/19 03:38 Urine Bacteria (Auto) 1+ /HPF (Negative) 11/30/19 03:38 Urine Mucus 3+ /HPF 11/30/19 03:38 Salicylates < 0.3 mg/dL (2.8-20.0) L 11/30/19 00:02 Urine Opiates Screen Presumptive negative 11/30/19 03:38 Urine Methadone Screen Presumptive negative 11/30/19 03:38 Acetaminophen < 5.0 ug/mL (10.0-30.0) L 11/30/19 00:02 Ur Barbiturates Screen Presumptive negative 11/30/19 03:38 Ur Phencyclidine Scrn Presumptive negative 11/30/19 03:38 Ur Amphetamines Screen Presumptive negative 11/30/19 03:38 U Benzodiazepines Scrn Presumptive negative 11/30/19 03:38 Urine Cocaine Screen Presumptive negative 11/30/19 03:38 U Marijuana (THC) Screen Presumptive negative 11/30/19 03:38 Drugs of Abuse Note Disclamer 11/30/19 03:38 Plasma/Serum Alcohol < 0.01 % (0-0.07) 11/30/19 00:09 Finch/IV: Voiding Method Toilet IV Catheter Type [Right Wrist] Peripheral IV IV Catheter Type [Right Hand] Peripheral IV Active Medications - Current Medications Current Medications: Generic Name Dose Route Start Last Admin Trade Name Freq PRN Reason Stop Dose Admin Acetaminophen 650 mg 11/30/19 05:14 Tylenol PO Q4H PRN Pain MILD(1-3)/Fever >100.5/ESCOBAR Alprazolam 0.25 mg 11/30/19 13:07 Xanax PO Q8H PRN Anxiety Clonazepam 0.25 mg 12/01/19 22:00 12/03/19 09:23 Klonopin PO 0.25 mg BID JEF Administration Enoxaparin Sodium 40 mg 11/30/19 10:00 12/03/19 09:23 Enoxaparin SUB-Q 40 mg QDAY JEF Administration Haloperidol Lactate 2 mg 11/30/19 13:13 12/01/19 21:20 Haldol IM 2 mg Q6H PRN Administration Agitation Hydralazine HCl 25 mg 11/30/19 14:00 12/03/19 15:11 Apresoline PO Not Given Q8HR JEF Ceftriaxone Sodium 1 gm in 50 mls @ 100 mls/hr 11/30/19 10:00 12/03/19 09:31 Rocephin/Ns 1 Gm/50 Ml IV 100 mls/hr Q24HR JEF Administration Protocol Dextrose 1,000 mls @ 150 mls/hr 12/02/19 20:00 12/03/19 13:52 D5w IV 150 mls/hr DIRECT JEF Administration Lorazepam 1 mg 11/30/19 17:00 12/02/19 02:10 Ativan IV 1 mg Q6H PRN Administration Agitation Ondansetron HCl 4 mg 11/30/19 05:14 Zofran IV Q8H PRN Nausea And Vomiting Risperidone 1 mg 12/01/19 22:00 12/03/19 09:23 Risperdal PO 1 mg BID JEF Administration Sertraline HCl 25 mg 12/02/19 10:00 12/03/19 09:23 Zoloft PO 25 mg QDAY JEF Administration Sodium Chloride 10 ml 11/30/19 10:00 12/03/19 09:23 Sodium Chloride Flush Syringe 10 Ml IV 10 ml BID JEF Administration Sodium Chloride 10 ml 11/30/19 05:14 Sodium Chloride Flush Syringe 10 Ml IV PRN PRN LINE FLUSH Trazodone HCl 50 mg 12/01/19 22:00 12/02/19 22:53 Desyrel PO 50 mg QHS JEF Administration Nutrition/Malnutrition Assess - Dietary Evaluation Nutrition/Malnutrition Findings: Nutrition Notes Start: 12/01/19 13:42 Freq: Status: Active Protocol: Document 12/01/19 13:42 LM (Rec: 12/01/19 13:48 LM [email or web address]) Nutrition Notes Need for Assessment generated from: MD Order,wireless cellular technician,MST Initial or Follow up Brief Note Current Diagnosis Diabetes,Hypertension, Hyperlipidemia Other Pertinent Diagnosis Schizophrenia, bipolar Current Diet Cardiac Labs/Tests Na 152 K 3.3 BUN 26 Pertinent Medications Reviewed Height 5 ft 3 in Weight 78.4 kg [place] Body Weight (kg) 52.27 BMI 30.6 Weight Status Obese Subjective/Other Information MD consult for poor oral intakes and ONS. RN screen for MST. Unable to speak to pt. Per chart, pt was not eating or taking meds for one week. Nutrition Intervention Follow-Up By: 12/04/19 Additional Comments F/U for assessment
[2019-12-03] MEDS: traZODone 50 MG TAB PO SCH (21:54)
[2019-12-04 05:05] LABS: Basophils % (Auto) 0.3 % (0.0-1.8); Eosinophils # (Auto) 0.1 K/mm3 (0.0-0.4); Eosinophils % (Auto) 1.9 % (0.0-4.3); Hematocrit 36.8 % (30.3-42.9); Hemoglobin 12.1 gm/dl (10.1-14.3); Lymphocytes # (Auto) 1.6 K/mm3 (1.2-5.4); Lymphocytes % (Auto) 22.3 % (13.4-35.0); Mean Corpuscular HGB Conc 33 % (30-34); Mean Corpuscular Volume 81 fl (79-97); Monocytes # (Auto) 0.3 K/mm3 (0.0-0.8); Monocytes % (Auto) 4.8 % (0.0-7.3); Platelet Count 168 K/mm3 (140-440); Red Blood Count 4.54 M/mm3 (3.65-5.03); Red Cell Distribution Width 14.9 % (13.2-15.2)
[2019-12-04 05:18] LABS: BUN/Creatinine Ratio 11; Blood Urea Nitrogen 8 mg/dL (7-17); Calcium 9.2 mg/dL (8.4-10.2); Hemolysis Index 4
[2019-12-04] MEDS ORDERED: POTASSIUM CHLORIDE ER 20 MEQ TAB PO ONE ×2 (05:46→10:00)
[2019-12-04] MEDS: hydrALAZINE 25 MG TAB PO SCH (05:59)
[2019-12-04] MEDS: DEXTROSE 5% IN WATER 1,000 ML IV SCH (06:00)
--- NOTE | 2019-12-04 07:26 | Progress Note ---
Assessment and Plan Assessment and plan: --Hypokalemia;K 2.7, replace with 40 mEq KCl oral q 4 hrs x 2 Check magnesium , follow electrolytes --Acute metabolic encephalopathy; Patient noncommunicative, not eating or drinking on admission However today patient is alert awake , responding appropriately Taking her medications, had her breakfast Psych following --Hypernatremia; D5W, resolved Encourage oral fluids, free water flushes after Dobbhoff placement --Bizarre behavior secondary to being off antipsychotics Psych following, patient behavior significantly improved --Urinary tract infection, continue empiric antibiotic IV Rocephin Follow cultures --Diabetes Check fingersticks start insulin sliding scale --Hypertension Start antihypertensive --Bipolar/schizophrenia We will restart outpatient medications --DVT prophylaxis Monitor closely and adjust management as needed Plan of care reviewed with the patient's nurse Hospitalist Physical - Constitutional Vitals: Temp Pulse Resp BP Pulse Ox 98.4 F 77 16 125/70 96 12/04/19 04:58 12/04/19 05:59 12/04/19 04:58 12/04/19 05:59 12/04/19 04:58 General appearance: Present: mild distress, other (Noncommunicative,) Results - Labs CBC & Chem 7: 12/04/19 04:06 12/04/19 04:06 Labs: Laboratory Last Values WBC 7.1 K/mm3 (4.5-11.0) 12/04/19 04:06 RBC 4.54 M/mm3 (3.65-5.03) 12/04/19 04:06 Hgb 12.1 gm/dl (10.1-14.3) 12/04/19 04:06 Hct 36.8 % (30.3-42.9) 12/04/19 04:06 MCV 81 fl (79-97) 12/04/19 04:06 MCH 27 pg (28-32) L 12/04/19 04:06 MCHC 33 % (30-34) 12/04/19 04:06 RDW 14.9 % (13.2-15.2) 12/04/19 04:06 Plt Count 168 K/mm3 (140-440) 12/04/19 04:06 Lymph % (Auto) 22.3 % (13.4-35.0) 12/04/19 04:06 [place] % (Auto) 4.8 % (0.0-7.3) 12/04/19 04:06 Eos % (Auto) 1.9 % (0.0-4.3) 12/04/19 04:06 Baso % (Auto) 0.3 % (0.0-1.8) 12/04/19 04:06 Lymph # 1.6 K/mm3 (1.2-5.4) 12/04/19 04:06 [place] # 0.3 K/mm3 (0.0-0.8) 12/04/19 04:06 Eos # 0.1 K/mm3 (0.0-0.4) 12/04/19 04:06 Baso # 0.0 K/mm3 (0.0-0.1) 12/04/19 04:06 Seg Neutrophils % 70.7 % (40.0-70.0) H 12/04/19 04:06 Seg Neutrophils # 5.0 K/mm3 (1.8-7.7) 12/04/19 04:06 Sodium 141 mmol/L (137-145) D 12/04/19 04:06 Potassium 2.7 mmol/L (3.6-5.0) L* 12/04/19 04:06 Chloride 102.3 mmol/L (98-107) 12/04/19 04:06 Carbon Dioxide 27 mmol/L (22-30) 12/04/19 04:06 Anion Gap 14 mmol/L 12/04/19 04:06 BUN 8 mg/dL (7-17) 12/04/19 04:06 Creatinine 0.7 mg/dL (0.7-1.2) 12/04/19 04:06 Estimated GFR > 60 ml/min 12/04/19 04:06 BUN/Creatinine Ratio 11 % 12/04/19 04:06 Glucose 139 mg/dL (65-100) H 12/04/19 04:06 POC Glucose 97 (70-105) 11/30/19 08:24 Calcium 9.2 mg/dL (8.4-10.2) 12/04/19 04:06 Urine Color Yellow (Yellow) 11/30/19 03:38 Urine Turbidity Slightly-cloudy (Clear) 11/30/19 03:38 Urine pH 5.0 (5.0-7.0) 11/30/19 03:38 Ur Specific [place] 1.029 (1.003-1.030) 11/30/19 03:38 Urine Protein 100 mg/dl mg/dL (Negative) 11/30/19 03:38 Urine Glucose (UA) Neg mg/dL (Negative) 11/30/19 03:38 Urine Ketones Tr mg/dL (Negative) 11/30/19 03:38 Urine Blood Mod (Negative) 11/30/19 03:38 Urine Nitrite Neg (Negative) 11/30/19 03:38 Urine Bilirubin Neg (Negative) 11/30/19 03:38 Urine Urobilinogen < 2.0 mg/dL (<2.0) 11/30/19 03:38 Ur Leukocyte Esterase Sm (Negative) 11/30/19 03:38 Urine WBC (Auto) 8.0 /HPF (0.0-6.0) H 11/30/19 03:38 Urine RBC (Auto) 8.0 /HPF (0.0-6.0) 11/30/19 03:38 U Epithel Cells (Auto) 5.0 /HPF (0-13.0) 11/30/19 03:38 Urine Bacteria (Auto) 1+ /HPF (Negative) 11/30/19 03:38 Urine Mucus 3+ /HPF 11/30/19 03:38 Salicylates < 0.3 mg/dL (2.8-20.0) L 11/30/19 00:02 Urine Opiates Screen Presumptive negative 11/30/19 03:38 Urine Methadone Screen Presumptive negative 11/30/19 03:38 Acetaminophen < 5.0 ug/mL (10.0-30.0) L 11/30/19 00:02 Ur Barbiturates Screen Presumptive negative 11/30/19 03:38 Ur Phencyclidine Scrn Presumptive negative 11/30/19 03:38 Ur Amphetamines Screen Presumptive negative 11/30/19 03:38 U Benzodiazepines Scrn Presumptive negative 11/30/19 03:38 Urine Cocaine Screen Presumptive negative 11/30/19 03:38 U Marijuana (THC) Screen Presumptive negative 11/30/19 03:38 Drugs of Abuse Note Disclamer 11/30/19 03:38 Plasma/Serum Alcohol < 0.01 % (0-0.07) 11/30/19 00:09 Finch/IV: Voiding Method Toilet IV Catheter Type [Right Wrist] Peripheral IV IV Catheter Type [Right Hand] Peripheral IV Active Medications - Current Medications Current Medications: Generic Name Dose Route Start Last Admin Trade Name Freq PRN Reason Stop Dose Admin Acetaminophen 650 mg 11/30/19 05:14 Tylenol PO Q4H PRN Pain MILD(1-3)/Fever >100.5/ESCOBAR Alprazolam 0.25 mg 11/30/19 13:07 Xanax PO Q8H PRN Anxiety Clonazepam 0.25 mg 12/01/19 22:00 12/03/19 21:54 Klonopin PO 0.25 mg BID JEF Administration Enoxaparin Sodium 40 mg 11/30/19 10:00 12/03/19 09:23 Enoxaparin SUB-Q 40 mg QDAY JEF Administration Haloperidol Lactate 2 mg 11/30/19 13:13 12/01/19 21:20 Haldol IM 2 mg Q6H PRN Administration Agitation Hydralazine HCl 25 mg 11/30/19 14:00 12/04/19 05:59 Apresoline PO 25 mg Q8HR JEF Administration Ceftriaxone Sodium 1 gm in 50 mls @ 100 mls/hr 11/30/19 10:00 12/03/19 09:31 Rocephin/Ns 1 Gm/50 Ml IV 100 mls/hr Q24HR JEF Administration Protocol Dextrose 1,000 mls @ 150 mls/hr 12/02/19 20:00 12/04/19 06:00 D5w IV 150 mls/hr DIRECT JEF Administration Lorazepam 1 mg 11/30/19 17:00 12/02/19 02:10 Ativan IV 1 mg Q6H PRN Administration Agitation Ondansetron HCl 4 mg 11/30/19 05:14 Zofran IV Q8H PRN Nausea And Vomiting Risperidone 1 mg 12/01/19 22:00 12/03/19 21:53 Risperdal PO 1 mg BID JEF Administration Sertraline HCl 25 mg 12/02/19 10:00 12/03/19 09:23 Zoloft PO 25 mg QDAY JEF Administration Sodium Chloride 10 ml 11/30/19 10:00 12/03/19 21:55 Sodium Chloride Flush Syringe 10 Ml IV 10 ml BID JEF Administration Sodium Chloride 10 ml 11/30/19 05:14 Sodium Chloride Flush Syringe 10 Ml IV PRN PRN LINE FLUSH Trazodone HCl 50 mg 12/01/19 22:00 12/03/19 21:54 Desyrel PO 50 mg QHS JEF Administration Nutrition/Malnutrition Assess - Dietary Evaluation Nutrition/Malnutrition Findings: Nutrition Notes Start: 12/01/19 13:42 Freq: Status: Active Protocol: Document 12/01/19 13:42 LM (Rec: 12/01/19 13:48 LM [email or web address]) Nutrition Notes Need for Assessment generated from: MD Order,wrap turner,MST Initial or Follow up Brief Note Current Diagnosis Diabetes,Hypertension, Hyperlipidemia Other Pertinent Diagnosis Schizophrenia, bipolar Current Diet Cardiac Labs/Tests Na 152 K 3.3 BUN 26 Pertinent Medications Reviewed Height 5 ft 3 in Weight 78.4 kg [place] Body Weight (kg) 52.27 BMI 30.6 Weight Status Obese Subjective/Other Information MD consult for poor oral intakes and ONS. RN screen for MST. Unable to speak to pt. Per chart, pt was not eating or taking meds for one week. Nutrition Intervention Follow-Up By: 12/04/19 Additional Comments F/U for assessment
[2019-12-04] MEDS: SERTRALINE 25 MG TAB PO SCH (10:31)
[2019-12-04] MEDS: clonazePAM 0.5 MG TAB PO SCH (10:32)
[2019-12-04] MEDS: cefTRIAXone/NS 1 GM/50 ML 1 GM/50 ML BAG IV SCH (10:32)
[2019-12-04] MEDS: risperiDONE 1 MG TAB PO SCH (10:32)
[2019-12-04] MEDS: ENOXAPARIN 40 MG/0.4 ML INJ SUB-Q SCH (10:33)
--- NOTE | 2019-12-04 14:19 | Progress Note ---
Subjective - Reason for Consult Consult date: 12/04/19 Reason for consult: Psychiatric assessment - Chief Complaint Chief complaint: Ms. Davison is a 54-year-old -[place] female, the patient is noted in bed awake oriented x2, reoriented to place. The patient appear calm cooperative, she appears her age, she is dressed appropriately for the occasion she maintains eye contact, she is able to make her needs known. When asked why she was here the patient stated, I have no idea what happened at home. The patient reports that she does have a history of schizoaffective disorder and reported that she has not been taking her meds for unknown period of time, when asked why she states I do not even know why. The patient stated, "I know know that I need to take my medications anyway" the patient denies suicidal or homicidal ideations and contracts for safety. The patient does report hearing voices sometimes telling her crazy stuff she states, "sometimes I do not even know what they are saying". He does report visual hallucination of blurriness. The patient reports that having depressive symptoms and rates her depression as a 7 out of 10. The patient stated prior to coming to this facility she has not been sleeping for a long time. The patient reports her mood as okay. The patient is requesting to follow-up with psychiatric doctor on the outside as she has not seen one for years, she states that she gets her medication from her primary care. A clinic or outpatient treatment setting is recommended at this time. The patient is motivated for compliance and adherence to medication regimen and understanding needs to be compliance with her medications. REVIEW OF SYSTEMS Constitutional: Negative for weight loss ENT: Negative for stridor Respiratory: Negative for cough or hemoptysis All other systems reviewed and are negative MSE Appearance: Awake. Dressed appropriately Behavior: cooperative, Mood: good Affect: Euthymic Thought Process: goal directed Speech:normal Thought Content Suicidal: Denies Homicidal: Denies Delusions:DENIES Consciousness: Alert Cognition/Memory: limited Insight/Judgment: intact RECOMMENDATIONS MEDICATIONS: continue medication on chart Risks, benefits and alternatives of medications discussed with the patient, questions answered and consent obtained from patient. MEDICAL: Per primary team DELIRIUM PRECAUTIONS: Please re-orient patient frequently, keep lights on during the day, and minimize benzodiazepines and opiates as these medications could worsen patient's confusion. 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 request out-patient psychotherapy and a psychiatrist doctor to follow. LEGAL STATUS: voluntary FOLLOW-UP: sign-off Medications and Allergies Allergies Mental Status Exam - Vital signs Last Vital Signs Temp 98.6 F 12/04/19 12:01 Pulse 83 12/04/19 12:01 Resp 16 12/04/19 12:01 BP 116/56 12/04/19 12:01 Pulse Ox 98 12/04/19 12:01
--- NOTE | 2019-12-04 16:47 | Discharge Summary ---
Providers - Providers Date of Admission: 11/30/19 08:22 Date of discharge: 12/04/19 Attending physician: KEILY GONZALEZ 11/30/19 06:28 psychiatry consult [Consult to Mental Health] [CONS] Routine Reason For Exam: Bizarre behavior 11/30/19 18:51 Consult to Dietitian/Nutrition [CONS] Routine Physician Instructions: Reason For Exam: Reason for Consult: Poor oral intake 11/30/19 23:51 Consult to Case Management [CONS] Routine Services Needed at Discharge: Software Architect Notified:: no [facility] Condition: [facility] Hospital course: --Hypokalemia;K 2.7, replace with 40 mEq KCl oral q 4 hrs x 2 Check magnesium , follow electrolytes --Acute metabolic encephalopathy; Patient noncommunicative, not eating or drinking on admission However today patient is alert awake , responding appropriately Taking her medications, had her breakfast Psych following --Hypernatremia; D5W, resolved Encourage oral fluids, free water flushes after Dobbhoff placement --Bizarre behavior secondary to being off antipsychotics Psych following, patient behavior significantly improved --Urinary tract infection, continue empiric antibiotic IV Rocephin Follow cultures --Diabetes Check fingersticks start insulin sliding scale --Hypertension Start antihypertensive --Bipolar/schizophrenia We will restart outpatient medications Disposition: - TO HOME OR SELFCARE Time spent for discharge: 32 min Core Measure Documentation - Palliative Care Palliative Care/ Comfort Measures: Not Applicable - Core Measures Any of the following diagnoses?: none Exam - Constitutional Vitals: Temp Pulse Resp BP Pulse Ox 98.6 F 83 16 116/56 98 12/04/19 12:01 12/04/19 12:01 12/04/19 12:01 12/04/19 12:01 12/04/19 12:01 General appearance: Present: no acute distress, well-nourished - EENT Eyes: Present: PERRL, EOM intact - Neck Neck: Present: supple, normal ROM - Respiratory Respiratory effort: normal Respiratory: bilateral: diminished, negative: rales, rhonchi, wheezing - Cardiovascular Rhythm: regular Heart Sounds: Present: S1 & S2 - Extremities Extremities: no ischemia, No edema - Abdominal General gastrointestinal: Present: soft, non-tender, non-distended, normal bowel sounds - Integumentary Integumentary: Present: clear, warm - Musculoskeletal Musculoskeletal: strength equal bilaterally - Psychiatric Psychiatric: appropriate mood/affect, cooperative - Neurologic Neurologic: CNII-XII intact, moves all extremities Plan Activity: advance as tolerated, fall precautions Diet: regular Additional Instructions: Advised to see private psychiatrist within 1 week. Or [facility] in 1 week Follow up with: ANTONIO CLAIRE MD [Primary Care Provider] - 7 Days Prescriptions: hydrALAZINE [Apresoline TAB] 25 mg PO Q8HR #90 tablet traZODone [Desyrel] 50 mg PO QHS #14 tablet clonazePAM [KlonoPIN] 0.25 mg PO BID #20 tablet risperiDONE [RisperDAL] 1 mg PO BID #14 tablet Sertraline [Zoloft] 25 mg PO QDAY #14 tablet
[2019-12-04 17:26] VITALS: BP 119/68
== END 2019-12-04 18:45 | disposition home or self-care (01) | DRG 689 ==
LOC: ED 23:31 → 3A 11-30 08:22
PROVIDERS: ADMIT Internal Medicine; ATTEND Internal Medicine
DX: N30.01 Acute cystitis with hematuria (principal); G93.41 Metabolic encephalopathy; E87.0 Hyperosmolality and hypernatremia; F20.9 Schizophrenia, unspecified; I10 Essential (primary) hypertension; E87.6 Hypokalemia; E86.0 Dehydration; E11.9 Type 2 diabetes mellitus without complications; E78.00 Pure hypercholesterolemia, unspecified; F31.9 Bipolar disorder, unspecified; R00.0 Tachycardia, unspecified; R41.82 Altered mental status, unspecified; D72.829 Elevated white blood cell count, unspecified; E78.5 Hyperlipidemia, unspecified
CPT/HCPCS: 36415; 70450; 80048; 80307; 80320; 81001; 82962; 83735; 84132; 85025; 96365; 96372; G0378; G0480; J0692; J0696; J1630; J1650; J2060; J3486; J7030; J7070

== ENCOUNTER 2022-01-14 21:16 | Emergency (ER) | payer SELFPAY ==
[2022-01-14 22:27] VITALS: BP 126/63
[2022-01-14 23:04] LABS: Bacteria,Urine 2+ /HPF (Negative); Bilirubin,Urine NEG (Negative); Blood,Urine LG (Negative); Color,Urine Yellow (Yellow)
[2022-01-14 23:05] LABS: RBC,Urine > 182.0 /HPF (0.0-6.0); WBC,Urine > 182.0 /HPF (0.0-6.0)
[2022-01-15] MEDS ORDERED: LIDOCAINE-MPF (1%) 10 MG/1 ML VIAL 5 ML INFILTRATI ONE (01:29)
[2022-01-15] MEDS ORDERED: oxyCODONE /ACETAMINOPHEN 5-325MG TAB PO ONE (01:30)
--- NOTE | 2022-01-15 01:44 | Emergency Department Report ---
ED Female HPI - General Chief complaint: Urogenital-Female Stated complaint: BLOOD IN URINE Time Seen by Provider: 01/15/22 01:28 Source: patient Mode of arrival: Ambulatory Limitations: No Limitations - History of Present Illness Complaint: dysuria -: Gradual, days(s) (2) Radiation: suprapubic, R flank, other (Lower back region) Severity: moderate Quality: dull, aching Consistency: constant Improves with: none Worsens with: urination Are you Now?: No - Related Data Previous Rx's Medication Instructions Recorded Last Taken Type Sertraline [Zoloft] 25 mg PO QDAY #14 tablet 12/04/19 Unknown Rx clonazePAM [KlonoPIN] 0.25 mg PO BID #20 tablet 12/04/19 Unknown Rx hydrALAZINE [Apresoline TAB] 25 mg PO Q8HR #90 tablet 12/04/19 Unknown Rx risperiDONE [RisperDAL] 1 mg PO BID #14 tablet 12/04/19 Unknown Rx traZODone [Desyrel] 50 mg PO QHS #14 tablet 12/04/19 Unknown Rx Nitrofurantoin [place]/M-Cryst 100 mg PO Q12HR #20 capsule 01/15/22 Unknown Rx [Macrobid CAP] Phenazopyridine [Pyridium] 200 mg PO TID #9 tab 01/15/22 Unknown Rx Allergies Allergy/AdvReac Type Severity Reaction Status Date / Time No Known Allergies Allergy Verified 01/14/22 22:27 ED Review of Systems ROS: Stated complaint: BLOOD IN URINE Other details as noted in HPI Comment: All other systems reviewed and negative ED Past Medical Hx - Past Medical History Previous Medical History?: Yes Hx Hypertension: Yes Hx Diabetes: Yes Hx Psychiatric Treatment: Yes (Bipolar schizo) Additional medical history: high cholesterol - Surgical History Past Surgical History?: No - Social History Smoking Status: Never Smoker Substance Use Type: None - Medications Home Medications: Home Medications Medication Instructions Recorded Confirmed Last Taken Type Sertraline [Zoloft] 25 mg PO QDAY #14 tablet 12/04/19 Unknown Rx clonazePAM [KlonoPIN] 0.25 mg PO BID #20 tablet 12/04/19 Unknown Rx hydrALAZINE [Apresoline TAB] 25 mg PO Q8HR #90 tablet 12/04/19 Unknown Rx risperiDONE [RisperDAL] 1 mg PO BID #14 tablet 12/04/19 Unknown Rx traZODone [Desyrel] 50 mg PO QHS #14 tablet 12/04/19 Unknown Rx Nitrofurantoin [place]/M-Cryst 100 mg PO Q12HR #20 capsule 01/15/22 Unknown Rx [Macrobid CAP] Phenazopyridine [Pyridium] 200 mg PO TID #9 tab 01/15/22 Unknown Rx ED Physical Exam - General Limitations: No Limitations General appearance: alert, in no apparent distress - Head Head exam: Present: atraumatic, normocephalic - Eye Eye exam: Present: normal appearance - ENT ENT exam: Present: mucous membranes moist - Neck Neck exam: Present: normal inspection - Respiratory Respiratory exam: Present: normal lung sounds bilaterally. Absent: respiratory distress - Cardiovascular Cardiovascular Exam: Present: regular rate, normal rhythm. Absent: systolic murmur, diastolic murmur, rubs, gallop - GI/Abdominal GI/Abdominal exam: Present: soft, normal bowel sounds - Extremities Exam Extremities exam: Present: normal inspection - Back Exam Back exam: Present: normal inspection - Neurological Exam Neurological exam: Present: alert, oriented X3 - Psychiatric Psychiatric exam: Present: normal affect, normal mood - Skin Skin exam: Present: warm, dry, intact, normal color. Absent: rash ED Course Vital Signs 01/14/22 22:20 Temperature 98.3 F Pulse Rate 77 Respiratory 18 Rate Blood Pressure 126/63 [Left] O2 Sat by Pulse 77 L Oximetry ED Medical Decision Making - Lab Data Lab Results 01/14/22 Range/Units Unknown Urine Color Yellow (Yellow) Urine Turbidity Cloudy (Clear) Urine pH 6.0 (5.0-7.0) Ur Specific [place] 1.021 (1.003-1.030) Urine Protein 100 mg/dl (Negative) mg/dL Urine Glucose (UA) Neg (Negative) mg/dL Urine Ketones Neg (Negative) mg/dL Urine Blood Lg (Negative) Urine Nitrite Pos (Negative) Urine Bilirubin Neg (Negative) Urine Urobilinogen 4.0 (<2.0) mg/dL Ur Leukocyte Esterase Lg (Negative) Urine WBC (Auto) > 182.0 H (0.0-6.0) /HPF Urine RBC (Auto) > 182.0 (0.0-6.0) /HPF U Epithel Cells (Auto) 3.0 (0-13.0) /HPF Urine Bacteria (Auto) 2+ (Negative) /HPF - Medical Decision Making This patient presents to the emergency department with symptoms consistent with acute uncomplicated cystitis. No systemic symptoms. Not septic. She is well- appearing. Low suspicion for acute pyelonephritis given the lack of fever, CVA tenderness, or systemic features. Low suspicion for for kidney stone or infected stone. Not in age range for to be a significant concern and her history and and presentation are uncomplicated. No no indications for labs or imaging at this time. Critical care attestation.: If time is entered above; I have spent that time in minutes in the direct care of this critically ill patient, excluding procedure time. ED Disposition Clinical Impression: UTI (urinary tract infection) Disposition: 01 HOME / SELF CARE / HOMELESS Is pt being admited?: No Does the pt Need Aspirin: No Condition: Stable Instructions: Urinalysis Test, Urinary Tract Infection, Adult Prescriptions: Nitrofurantoin [place]/M-Cryst [Macrobid CAP] 100 mg PO Q12HR #20 capsule Phenazopyridine [Pyridium] 200 mg PO TID #9 tab Referrals: MAURIZIO VIRAMONTES MD [Primary Care Provider] - 3-5 Days
== END 2022-01-15 01:50 | disposition home or self-care (01) ==
LOC: ED 21:16
DX: N39.0 Urinary tract infection, site not specified (principal); I10 Essential (primary) hypertension; E11.9 Type 2 diabetes mellitus without complications; F31.9 Bipolar disorder, unspecified; F20.9 Schizophrenia, unspecified; E78.00 Pure hypercholesterolemia, unspecified
CPT/HCPCS: 81001; 96372; 99283; J0696; J3490